=== PATIENT | male | born 1975 | race Two or more races ===

== ENCOUNTER 2017-10-05 06:50 | Day surgery (SDC) | payer OTHER ==
[2017-10-05] MEDS ORDERED: COLACE100 MG PO (08:37)
[2017-10-05] MEDS ORDERED: PERCOCET 5-3251 EACH PO (08:37)
== END 2017-10-05 12:45 | disposition home or self-care (01) ==
LOC: CIR.AMB 06:50
DX: K64.4 Residual hemorrhoidal skin tags (principal); K64.8 Other hemorrhoids; K62.89 Other specified diseases of anus and rectum

== ENCOUNTER 2021-12-07 15:49 | Outpatient (CLI) | payer OTHER ==
[~2021-12-07 15:49] MED LIST: COLACE100 MG PO; PERCOCET 5-3251 EACH PO
== END 2021-12-07 16:00 | disposition home or self-care (01) ==
LOC: RAD 15:49
PROVIDERS: ATTEND Orthopaedic Surgery
DX: M25.512 Pain in left shoulder (principal); M25.521 Pain in right elbow